=== PATIENT | male | born 2000 | race Caucasian/White ===

== ENCOUNTER → 2018-03-13 00:07 | Emergency (ER) | payer OTHER ==
[~2018-03-13 00:07] MED LIST: Albuterol 0.5% CONC NEB.SOL* 5 MG/ML 20 ml BOT INH ONE; predniSONE TAB* 20 MG PO ONE
--- NOTE | 2018-03-13 00:44 | ED ---
Asthma - HPI Summary HPI Summary: The patient is a 17 y/o M presenting to [facility] accompanied by roommate with a chief complaint of asthma exacerbation starting approximately 40 minutes [employer]. He states he's been feeling winded with short, shallow breathing, cough, and shortness of breath for the last few days. He has a hx of asthma with dx at a young age. He currently feels like he is still gasping for air even after using multiple treatments of Albuterol, but his symptoms have gotten better since onset. He additionally has a hoarse voice. He reports that he has had pneumonia a few times, and his asthma is usually only exacerbated if he's around things he 's allergic to or if he's sick. He feels like he is starting to get sick so he' s also been taking Dayquil, Nyquil, Flonase, and Guaifenesin. Occasional smoker. 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, Still Present Timing: Constant Initial Severity: Severe Current Severity: Moderate Pain Intensity: 0 Pain Scale Used: 0-10 Numeric Location/Character: Cough (Nonproductive) Aggravating Symptoms: Allergens Alleviating Symptoms: Inhalers/Nebulizers - Albuterol Associated Signs and Symptoms: Positive: Shortness of Breath, Other - hoarse voice Related History: Similar Episode/Dx as - asthma - Allergy/Home Medications Allergies/Adverse Reactions: Allergies Allergy/AdvReac Type Severity Reaction Status Date / Time No Known Allergies Allergy Verified 03/13/18 00:11 Home Medications: Home Medications Albuterol HFA INHALER* [Ventolin HFA Inhaler*] 90 mcg INH Q6HR PRN 03/13/18 [ History Confirmed 03/13/18] PMH/Surg Hx/FS Hx/Imm Hx Endocrine/Hematology History: Denies: Hx Diabetes Respiratory History: Reports: Hx Asthma Opthamlomology History: Denies: Hx Legally Blind EENT History: Denies: Hx Deafness Infectious Disease History: No Infectious Disease History: Denies: Traveled Outside the [place] in Last 30 Days - Family History Known Family History: Positive: Cardiac Disease, Other - cancer - Social History Alcohol Use: None Substance Use Type: Reports: None Hx Tobacco Use: Yes - occasional smoker Smoking Status (MU): Never Smoked Tobacco Review of Systems ENT: Other - hoarse voice Positive: Shortness Of Breath, Cough All Other Systems Reviewed And Are Negative: Yes Physical Exam - Summary Physical Exam Summary: Appearance: Well-appearing, Well-nourished, lying in bed comfortably Skin: Warm, dry, no obvious rash Eyes: sclera anicteric, no conjunctival pallor ENT: mucous membranes moist, pharynx appears normal Neck: Supple, nontender Respiratory: Expiratory wheezing with aeration, no signs of focal consolidation , no signs of respiratory distress Cardiovascular: Normal S1, S2. No murmurs. Normal distal pulses in tibial and radial bilaterally. Abdomen: Soft, nontender, normal active bowel sounds present Musculoskeletal: Normal, Strength/ROM Intact Neurological: A&Ox3, awake and alert, mentation is normal, speech is fluent and appropriate Psychiatric: affect is normal, does not appear anxious or depressed Triage Information Reviewed: Yes Vital Signs On Initial Exam: Initial Vitals Temp Pulse Resp BP Pulse Ox 98.9 F 109 24 149/76 92 03/13/18 00:09 03/13/18 00:09 03/13/18 00:09 03/13/18 00:09 03/13/18 00:09 Vital Signs Reviewed: Yes Diagnostics - Vital Signs Vital Signs Temp Pulse Resp BP Pulse Ox 03/13/18 00:26 111 24 97 03/13/18 00:09 98.9 F 109 24 149/76 92 - Laboratory Lab Statement: Any lab studies that have been ordered have been reviewed, and results considered in the medical decision making process. Re-Evaluation - Re-Evaluation First Eval Re-Evaluation Time: 02:15 Change: Improved Comment: Patient is feeling better after Albuterol treatment. He will be discharged home. 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 His exacerbation is described as becoming suddenly winded with short, shallowing breaths, that were not completely relieved by his Albuterol inhaler. He has never been hospitalized for asthma, which he was diganosed with at a young age. In the ED, he is still feeling like he is gasping for air, but his symptoms have started to get better. He has had PNA multiple times, and his asthma worsens when he becomes sick or is near to allergens. He currently feels like he is starting to get sick so he has been taking Dayquil, Nyquil, Flonase, and Guaifenesin. The physical exam shows expiratory wheezing with good aeration, and there are no signs of focal consolidation. In the ED course, the pt was given an Albuterol treatmetn and Prednisone. He will be diagnosed and given instructions for asthma exacerbation upon discharge home. He is prescribed Prednisone and will follow up with [facility]. Return precautions given for new or worsening symptoms. Patient understands and agrees with this plan. - Diagnoses Provider Diagnoses: Asthma exacerbation Discharge - Sign-Out/Discharge Documenting (check all that apply): Patient Departure - Patient will be discharged home. - Discharge Plan Condition: Improved Disposition: HOME Prescriptions: predniSONE [Prednisone 20 MG TAB] 40 mg PO DAILY 7 Days #14 tablet Patient Education Materials: Asthma (ED) Referrals: [facility] [Outside] - Billing Disposition and Condition Condition: IMPROVED Disposition: Home - Attestation Statements Document Initiated by Jorge Albertoibe: Yes Documenting Scribe: Arielle Brennan Provider For Whom Dax is Documenting (Include Credential): Dr. Joshua Diaz Scribe Attestation: I, shashi Stormed for Dr. Joshua Diaz on 03/13/18 at 0215. Scribe Documentation Reviewed: Yes Provider Attestation: The documentation as recorded by the Arielle lauren accurately reflects the service I personally performed and the decisions made by me, Dr. Joshua Diaz
[2018-03-13 02:31] VITALS: BP 116/68
== END | disposition home or self-care (01) ==
LOC: ED 00:07
DX: J45.901 Unspecified asthma with (acute) exacerbation (principal); R06.02 Shortness of breath; R05 Cough
CPT/HCPCS: 99283; J7512; J7611

== ENCOUNTER 2018-04-19 12:18 | Emergency (ER) | payer OTHER ==
[2018-04-19] MEDS ORDERED: predniSONE TAB* 20 MG PO ONE (12:52)
[2018-04-19] MEDS ORDERED: Albuterol/Ipratropium NEB.SOL* Albuterol 2.5 MG/Ipratropium 0.5 MG 3 ML INH ONE (12:52)
--- NOTE | 2018-04-19 12:54 | ED ---
Respiratory - HPI Summary HPI Summary: Pt is 17 y/o M presents to ED c/o asthma for past 3 days. PMHx of asthma and takes albuterol. For the past 3 days his asthma has been more severe than his baseline. He also notes cough, congestion, and runny nose. Denies fever or sore throat. Pt visited the ED a few weeks ago for asthma related issues and was put on antibiotics. - History of Current Complaint Chief Complaint: EDAsthma Stated Complaint: ASTHMA Time Seen by Provider: 04/19/18 12:48 Hx Obtained From: Patient Onset/Duration: Lasting Days, Still Present Pain Intensity: 0 Character: Cough (Nonproductive) Aggravating Factor(s): Nothing Alleviating Factor(s): Nothing Associated Signs and Symptoms: Fever - NEGATIVE, Nasal Congestion - Allergy/Home Medications Allergies/Adverse Reactions: Allergies Allergy/AdvReac Type Severity Reaction Status Date / Time No Known Allergies Allergy Verified 04/19/18 12:52 Home Medications: Home Medications Flovent HFA 110 mcg(NF) 2 puff PO DAILY 04/19/18 [History Confirmed 04/19/18] PMH/Surg Hx/FS Hx/Imm Hx Endocrine/Hematology History: Denies: Hx Diabetes Cardiovascular History: Denies: Hx Hypertension Respiratory History: Reports: Hx Asthma Denies: Hx Chronic Obstructive Pulmonary Disease (COPD) Sensory History: Denies: Hx Legally Blind, Hx Deafness Opthamlomology History: Denies: Hx Legally Blind Infectious Disease History: No Infectious Disease History: Denies: Traveled Outside the [place] in Last 30 Days - Family History Known Family History: Positive: Cardiac Disease, Other - cancer - Social History Alcohol Use: None Substance Use Type: Reports: None Hx Tobacco Use: Yes - occasional smoker Smoking Status (MU): Never Smoked Tobacco Review of Systems Negative: Fever Positive: Nasal Discharge, Other - Cough, congestion. Negative: Sore Throat Positive: Shortness Of Breath All Other Systems Reviewed And Are Negative: Yes Physical Exam - Summary Physical Exam Summary: Appearance: Well appearing, no pain distress Skin: warm, dry, reflects adequate perfusion Head/face: normal Eyes: EOMI, KHAI ENT: nasal congestion, mucous membranes moist Neck: supple, non-tender Respiratory: diffuse expiratory wheezes, breath sounds present Cardiovascular: RRR, pulses symmetrical Abdomen: non-tender, soft Bowel Sounds: present Musculoskeletal: normal, strength/ROM intact Neuro: normal, sensory motor intact, A&Ox3 Triage Information Reviewed: Yes Vital Signs On Initial Exam: Initial Vitals Temp Pulse Resp BP Pulse Ox 97.8 F 107 18 119/66 94 04/19/18 12:19 04/19/18 12:19 04/19/18 12:19 04/19/18 12:19 04/19/18 12:19 Vital Signs Reviewed: Yes Diagnostics - Vital Signs Vital Signs Temp Pulse Resp BP Pulse Ox 04/19/18 12:19 97.8 F 107 18 119/66 94 - Laboratory Lab Statement: Any lab studies that have been ordered have been reviewed, and results considered in the medical decision making process. Re-Evaluation - Re-Evaluation First Eval Re-Evaluation Time: 13:35 Change: Improved - Pt is feeling better and wheezing has diminished. Disposition - Course Course Of Treatment: Agent with history of asthma with diffuse wheezing exacerbated by mild upper respiratory tract infection. No fever or crackles in the lungs. Lungs clear with treatment. Began on steroids here. Return if worse or other concerns. Follow-up with [facility]. - Differential Dx - Cardiopulmonary Differential Diagnoses - Cardiopulmonary: Other - Pneumonia, upper respiratory infection, asthma exacerbation - Diagnoses Provider Diagnoses: URI (upper respiratory infection), Acute asthma exacerbation Discharge - Sign-Out/Discharge Documenting (check all that apply): Patient Departure - discharge - Discharge Plan Condition: Improved Disposition: HOME Prescriptions: Albuterol HFA INHALER* [Ventolin HFA Inhaler*] 90 mcg INH Q6HR PRN #1 mdi PRN Reason: Wheezing Dexamethasone TAB* [Decadron TAB*] 8 mg PO DAILY #8 tab Guaifenesin/Pseudo 600/60(NF) [Mucinex D 600/60 (NF)] 1 tab PO BID #12 tab Patient Education Materials: Asthma (ED), Upper Respiratory Infection (ED) Referrals: [facility] - Tonny PEREIRA [Primary Care Provider] - Additional Instructions: Stay well-hydrated. Use albuterol every 4 hours until well. Return with fever , difficulty breathing, worse, new symptoms or other concerns as discussed. - Billing Disposition and Condition Condition: IMPROVED Disposition: Home - Attestation Statements Document Initiated by Scribe: Yes Documenting Scribe: Simon Castaneda Provider For Whom Scribe is Documenting (Include Credential): Dr. Cody Dove MD Scribe Attestation: ISimon, scribed for Dr. Cody Dove MD on 04/19/18 at 1732. Scribe Documentation Reviewed: Yes Provider Attestation: The documentation as recorded by the scribe, Simon Castaneda accurately reflects the service I personally performed and the decisions made by me, Dr. Cody Dove MD
[2018-04-19] MEDS ORDERED: Dexamethasone IV* 4 MG/ML 1 ML (4 MG) IM ONE (13:35)
[2018-04-19 14:17] VITALS: BP 120/70
== END 2018-04-19 14:16 | disposition home or self-care (01) ==
LOC: ED 12:18
DX: J06.9 Acute upper respiratory infection, unspecified (principal); J45.901 Unspecified asthma with (acute) exacerbation
CPT/HCPCS: 96372; 99282; A9270-GY; J1100; J7512